=== PATIENT | male | born 1965 | race Caucasian/White ===

== ENCOUNTER 2018-02-27 22:40 | Inpatient (IN) | END 2018-03-02 12:50 | disposition home or self-care (01) | DRG 392 ==

== ENCOUNTER 2018-03-26 19:04 | Emergency (ER) | END 2018-03-27 06:14 | disposition home or self-care (01) ==

== ENCOUNTER 2018-06-29 10:07 | Day surgery (SDC) | payer OTHER ==
[~2018-06-29] VITALS: Ht 170.2 cm; Wt 87.4 kg
[~2018-06-29 10:07] MED LIST: AMOX1TAB10 PO; HYDR-4011 PO; IBUP-1542 PO; IBUP-1545 PO; LIDOCAINE 2% (SDV) 5 ML INJ ONE; METR500T PO; PROPOFOL 200 MG INJ ONE
[2018-06-29 11:29] VITALS: Ht 170.2 cm; Wt 87.4 kg
[2018-06-29 11:48] VITALS: BP 150/70; PULSE 54; RESP 19
--- NOTE | 2018-06-29 11:52 | PREAC ---
Date/Time of Note Date/Time of Note DATE: 06/29/18 TIME: 11:51 Anesthesia Eval and Record Evaluation Time Pre-Procedure Interview DATE: 06/29/18 TIME: 11:51 Age 53 Sex male NPO: 8 hrs Preoperative diagnosis screening Planned procedure egd, colonoscopy Past Medical History Past Medical History: Includes Cardio: HTN Musculoskeletal: Osteoarthritis GI: GERD Surgery & Anesthesia Issues No known issue Meds Anticoagulation: No Beta Neetu within 24 hr: No Reason Beta Neetu not given: Pt. not on B-Neetu Active Scripts Ibuprofen* (Motrin*) 600 Mg Tab, 600 MG PO Q6H PRN for PAIN AND OR ELEVATED TEMP, #20 TAB Prov:MICHEAL FARLEY MD 03/27/18 Hydrocodone/Acetaminophen ([place] 5-325 Tablet) 1 Each Tablet, 1 TAB PO Q6H PRN for PAIN, #7 TAB Prov:MICHEAL FARLEY MD 03/27/18 Amoxicillin/Potassium Clav (Amox-Clav 875-125 mg Tablet) 875-125 mg Tab, 1 TAB PO TID for 10 Days, #30 TAB Prov:MICHEAL FARLEY MD 03/27/18 Reported Medications Metronidazole* (Flagyl*) 500 Mg Tablet, 500 MG PO TID, TAB 03/27/18 Ibuprofen* (Ibuprofen*) 800 Mg Tab, 800 MG PO TID, TAB 03/27/18 Meds reviewed: Yes Allergies Coded Allergies: No Known Allergy (Unverified , 02/27/18) Allergies Reviewed: Yes Labs/Studies Labs Reviewed: Reviewed by anesthesiologist test: Negative Studies: ECG Pre-procedure Exam Last vitals Vital Signs Date Temp Pulse Resp B/P (MAP) Pulse Ox O2 O2 Flow FiO2 Time Delivery Rate 06/29/18 98.6 54 19 150/70 99 Room Air 11:48 (96) Airway: Adequate mouth opening, Adequate thyromental dist Mallampati: Mallampati II Teeth: Normal Lung: Normal Heart: Normal ASA Physical Status ASA physical status: 2 Emergency: None Planned Anesthetic General/MAC: Mask Pre-operative Attestations Prior to commencing anesthesia and surgery, the patient was re-evaluated, there was verification of: *The patient's identity *The results of appropriate recent lab work and preoperative vital signs *The above evaluation not changing prior to induction *Anesthetic plan, risk benefits, alternative and complications discussed with patient/family; questions answered; patient/family understands, accepts and wishes to proceed. CATINA WASHINGTON Jun 29, 2018 11:52
[2018-06-29] MEDS ORDERED: PROPOFOL 40 ML ONE (11:55)
[2018-06-29 13:14] VITALS: BP 144/86; RESP 19
--- NOTE | 2018-06-29 14:29 | PAC ---
Date/Time of Note Date/Time of Note DATE: 06/29/18 TIME: 14:29 Post-Anesthesia Notes Post-Anesthesia Note Last documented vital signs Vital Signs Date Temp Pulse Resp B/P (MAP) Pulse Ox O2 O2 Flow FiO2 Time Delivery Rate 06/29/18 144/86 13:14 (105) 06/29/18 98.6 54 99 Room Air 11:48 Activity: WNL Respiratory function: WNL Cardiovascular function: WNL Mental status: Baseline Pain reasonably controlled: Yes Hydration appropriate: Yes Nausea/Vomiting absent: Yes CATINA WASHINGTON Jun 29, 2018 14:29
== END 2018-06-29 13:57 | disposition home or self-care (01) ==
LOC: GIL 10:07
PROVIDERS: ATTEND Internal Medicine Gastroenterology
DX: Z12.11 Encounter for screening for malignant neoplasm of colon (principal); K29.30 Chronic superficial gastritis without bleeding; K21.9 Gastro-esophageal reflux disease without esophagitis; K64.8 Other hemorrhoids; K57.30 Diverticulosis of large intestine without perforation or abscess without bleeding; I10 Essential (primary) hypertension
CPT/HCPCS: 43239; 45378; 88305; 88312; Z7610